=== PATIENT | female | born 1970 | race Two or more races ===

== ENCOUNTER 2021-02-19 08:45 | Inpatient (IN) | payer OTHER ==
[~2021-02-19] VITALS: Ht 157.5 cm; Wt 72.6 kg
[2021-02-19] MEDS ORDERED: MEGESTROL PO (13:09)
[2021-02-26] MEDS ORDERED: MEGESTROL ACETA40 MG (11:48)
== END 2021-03-01 11:08 | disposition home or self-care (01) | DRG 743 ==
LOC: OB/GYN 02-26 08:45 → O/R 02-26 10:34 → OB/GYN 02-26 10:34
PROVIDERS: ADMIT Obstetrics & Gynecology; ATTEND Obstetrics & Gynecology
PROC: 0UT90ZZ Resection of Uterus, Open Approach (ICD-10-PCS; principal; 2021-02-26 20:30)
DX: N80.0 Endometriosis of uterus (principal); N72 Inflammatory disease of cervix uteri; D25.1 Intramural leiomyoma of uterus; D25.2 Subserosal leiomyoma of uterus; R10.2 Pelvic and perineal pain